=== PATIENT | female | born 1965 | race Caucasian/White ===

== ENCOUNTER 2018-01-27 07:53 | Outpatient (CLI) | payer OTHER ==
--- NOTE | 2018-01-27 10:42 | MRI ---
CERVICAL SPINE MRI WITHOUT IV CONTRAST: History: 53-year-old female with history of cervical radicular pain, chronic neck pain, particularly when the patient turns to the left side. FINDINGS: There are generalized disc desiccation changes and ligament and facet hypertrophic changes. Visualize d lower brain is unremarkable. No abnormal marrow signal. No evidence for spinal cord mass. There are generalized disc desiccation changes and ligament and facet hypertrophic changes with some generalized thickening of the posterior longitudinal ligament, particularly from C3 through C7. C2-3: There is no canal, lateral recess, or foraminal stenosis. C3-4: There is mild broad based disc protrusion with mild indention of the ventral thecal sac with mi ld central canal and lateral recess stenosis but no foraminal stenosis. C4-5: Broad based disc osteophyte with mild indention of the central thecal sac with mild central can al narrowing, but the lateral recesses and foramen are unremarkable. C5-6: Broad based disc osteophytosis with mild central canal and lateral recess stenosis and mild pauline ateral foraminal stenosis. C6-7: There is a somewhat more focal disc osteophyte in the right paracentral region as well as some dorsal ligamentous hypertrophic changes resulting in moderate to severe central canal stenosis and mi ld bilateral recess stenosis and moderate bilateral foraminal stenosis. C7-T1: Unremarkable. IMPRESSION: Multilevel variable severity mostly central canal and lateral recess and foraminal stenosis, most mar ked at C6-7. POS: [facility]
== END 2018-01-27 07:54 | disposition home or self-care (01) ==
LOC: SCSMRI 07:53
PROVIDERS: ATTEND Family Medicine
DX: M54.12 Radiculopathy, cervical region (principal); M48.02 Spinal stenosis, cervical region
CPT/HCPCS: 72141